=== PATIENT | male | born 1935 | race Two or more races ===

== ENCOUNTER 2019-09-09 14:14 | Emergency (ER) | payer OTHER ==
[~2019-09-09] VITALS: Ht 160 cm; Wt 72.6 kg
[~2019-09-09 14:14] MED LIST: CATAPRES0.3 M1 PO; CELEBREX100 MG PO; COREG PO; DIOVAN HCT 320/1 TA1 PO; JANUVIA100 MG PO; LIPITOR20 MG PO; NORVASC10 MG PO; PLETAL PO; ZYLOPRIM100 MG PO
== END 2019-09-09 17:50 | disposition home or self-care (01) ==
LOC: ER 14:14
DX: S30.0XXA Contusion of lower back and pelvis, initial encounter (principal); W18.09XA Striking against other object with subsequent fall, initial encounter; Y93.89 Activity, other specified; Y92.018 Other place in single-family (private) house as the place of occurrence of the external cause; Y99.8 Other external cause status

== ENCOUNTER 2019-10-10 13:27 | Outpatient (CLI) | payer OTHER | END 2019-10-10 13:53 | disposition home or self-care (01) | LOC: NUCLEAR 13:27 | DX: I70.223 Atherosclerosis of native arteries of extremities with rest pain, bilateral legs (principal) ==

== ENCOUNTER 2020-07-06 16:00 | Inpatient (IN) | payer OTHER ==
[~2020-07-06] VITALS: Ht 157.5 cm; Wt 72.6 kg
[2020-07-06] MEDS ORDERED: METFORMIN HCL500 M3 PO (16:26)
[2020-07-27] MEDS ORDERED: INTEGRA PLUS C1 EACH PO (11:50)
[2020-07-27] MEDS ORDERED: TAMS0.4C PO (11:50)
[2020-07-27] MEDS ORDERED: AMLODIPINE BESY10 MG PO (11:51)
[2020-07-27] MEDS ORDERED: LOSARTAN POTAS100 MG PO (11:51)
[2020-07-27] MEDS ORDERED: ISOSORBIDE DINI30 MG PO (11:51)
[2020-07-27] MEDS ORDERED: METOPROLOL TART50 MG PO (11:51)
[2020-07-27] MEDS ORDERED: HYDRALAZINE HCL50 MG PO (11:52)
[2020-07-27] MEDS ORDERED: FUROSEMIDE20 MG PO (11:52)
[2020-07-27] MEDS ORDERED: PROTONIX40 MG PO (11:53)
[2020-07-27] MEDS ORDERED: METFORMIN HCL500 M3 PO (11:53)
[2020-07-27] MEDS ORDERED: BENZONATATE100 MG PO (11:53)
[2020-07-27] MEDS ORDERED: JANUVIA100 MG PO (11:53)
[2020-07-27] MEDS ORDERED: VITAMIN C500 M1 PO (11:54)
[2020-07-27] MEDS ORDERED: VITAMIN D3125 MC2 PO (11:54)
[2020-07-27] MEDS ORDERED: OXYBUTYNIN CHLOR5 MG PO (11:54)
[2020-07-27] MEDS ORDERED: CARDURA XL4 MG PO (11:55)
[2020-07-27] MEDS ORDERED: ZYLOPRIM100 MG PO (11:55)
== END 2020-07-27 19:16 | disposition home or self-care (01) | DRG 291 ==
LOC: ER 16:00 → ICU 18:18 → SURG 07-11 13:43 → ICU 07-11 15:51 → SURG 07-11 21:13 → MEDI 07-13 16:21 → MEDJ 07-15 17:37
PROVIDERS: ADMIT Internal Medicine; ATTEND Internal Medicine
PROC: 3E0F7GC Introduction of Other Therapeutic Substance into Respiratory Tract, Via Natural or Artificial Opening (ICD-10-PCS; principal; 2020-07-06)
PROC: 4A033R1 Measurement of Arterial Saturation, Peripheral, Percutaneous Approach (ICD-10-PCS; 2020-07-06)
PROC: 30233N1 Transfusion of Nonautologous Red Blood Cells into Peripheral Vein, Percutaneous Approach (ICD-10-PCS; 2020-07-06)
PROC: B246ZZZ Ultrasonography of Right and Left Heart (ICD-10-PCS; 2020-07-07)
PROC: 4A12X4Z Monitoring of Cardiac Electrical Activity, External Approach (ICD-10-PCS; 2020-07-11)
PROC: 8E0ZXY6 Isolation (ICD-10-PCS; 2020-07-16)
PROC: BB24ZZZ Computerized Tomography (CT Scan) of Bilateral Lungs (ICD-10-PCS; 2020-07-16)
DX: I11.0 Hypertensive heart disease with heart failure (principal); U07.1 COVID-19; D59.12 Cold autoimmune hemolytic anemia; N39.0 Urinary tract infection, site not specified; I25.10 Atherosclerotic heart disease of native coronary artery without angina pectoris; D63.8 Anemia in other chronic diseases classified elsewhere; I50.9 Heart failure, unspecified; I34.0 Nonrheumatic mitral (valve) insufficiency; B95.2 Enterococcus as the cause of diseases classified elsewhere; Z95.1 Presence of aortocoronary bypass graft; I07.1 Rheumatic tricuspid insufficiency

== ENCOUNTER 2022-05-22 11:11 | Outpatient (CLI) | payer OTHER ==
[~2022-05-22 11:11] MED LIST changes: +AMLODIPINE BESY10 MG PO; +BENZONATATE100 MG PO; +CARDURA XL4 MG PO; +FUROSEMIDE20 MG PO; +HYDRALAZINE HCL50 MG PO; +INTEGRA PLUS C1 EACH PO; +ISOSORBIDE DINI30 MG PO; +LOSARTAN POTAS100 MG PO; +METFORMIN HCL500 M3 PO; +METOPROLOL TART50 MG PO; +OXYBUTYNIN CHLOR5 MG PO; +PROTONIX40 MG PO; +TAMS0.4C PO; +VITAMIN C500 M1 PO; +VITAMIN D3125 MC2 PO
== END 2022-05-22 11:16 | disposition home or self-care (01) ==
LOC: RAD 11:11
PROVIDERS: ATTEND Internal Medicine Hematology & Oncology
DX: M17.11 Unilateral primary osteoarthritis, right knee (principal)